=== PATIENT | female | born 1985 | race Caucasian/White ===

== ENCOUNTER 2018-01-18 16:13 | Outpatient (CLI) | payer BC ==
[2018-01-18 17:08] LABS: BHCG - Serum Negative (NEGATIVE); Pregs Control Background? CLEAR/WHITE (CLR/WHITE); Pregs Control Bar Appear? YES (CONTROL BAR)
[2018-01-18 17:45] LABS: ALT (SGPT) 179 U/L (8-55); AST (SGOT) 27 U/L (5-34); Albumin 4.1 g/dL (3.5-5.0); Alkaline Phosphatase 137 U/L (40-150); Bilirubin, Direct 0.2 mg/dL (0.1-0.3); Bilirubin, Total 0.3 mg/dL (0.2-1.2); Protein, Total 7.3 g/dL (6.0-8.3)
== END 2018-01-18 16:14 | disposition home or self-care (01) ==
LOC: LABBT 16:13
PROVIDERS: ATTEND Surgery
DX: Z01.812 Encounter for preprocedural laboratory examination (principal); K80.20 Calculus of gallbladder without cholecystitis without obstruction
CPT/HCPCS: 80076; 84703

== ENCOUNTER 2018-01-26 11:17 | Day surgery (SDC) | payer BC ==
[2018-01-18 16:28] VITALS: BMI 32.4
[2018-01-26] MEDS ORDERED: Midazolam HCl 2 mg/2 ml Vial ONE (12:40)
[2018-01-26] MEDS ORDERED: Bupivacaine/Epinephrine 0.25% 30 ML VIAL ONE (12:41)
[2018-01-26] MEDS ORDERED: Iothalamate Meglumine 60% 50 ML VIAL FS ONE (12:42)
[2018-01-26] MEDS ORDERED: Fentanyl 100 MCG/2 ML VIAL ONE ×5 (12:47→15:57)
[2018-01-26] MEDS ORDERED: cefOXitin 2 GM in Sodium Chloride 0.9% 100 ML IVPB SCH (13:00)
[2018-01-26] MEDS ORDERED: cefOXitin 2 GM VIAL ONE (13:15)
[2018-01-26] MEDS ORDERED: Lidocaine 1% PF 5 ML VIAL ONE (13:34)
[2018-01-26] MEDS ORDERED: Glycopyrrolate 0.2 MG/ML 5 ML SYRINGE ONE (13:34)
[2018-01-26] MEDS ORDERED: ePHEDrine/0.9% NaCl/PF SYRINGE 50 mg/10 ml ONE (13:34)
[2018-01-26] MEDS ORDERED: PROPOFOL 200 MG/20 ML VIAL ONE (13:34)
[2018-01-26] MEDS ORDERED: Ondansetron PF 4 MG/2 ML Vial ONE (14:29)
[2018-01-26] MEDS ORDERED: Ketorolac Tromethamine 30 MG/ML VIAL ONE (14:41)
--- NOTE | 2018-01-26 15:12 | RAD ---
TWO INTRAOPERATIVE RADIOGRAPHS DURING A CHOLANGIOGRAM: FINDINGS: Intraoperative cholangiogram was performed and demonstrates catheterization and injection of the cyst ic duct with contrast seen in the common bile duct and common hepatic ducts. Free flow of contrast i s seen into the duodenum. There is some retrograde contrast also in the distal pancreatic duct. IMPRESSION: No evidence of obstructing calculi seen in the common bile duct. POS: TRISH
[2018-01-26] MEDS ORDERED: HYDROcodone/Acetaminophen 5/325 mg Tablet ONE (18:11)
--- NOTE | 2018-01-26 20:52 | OP ---
DATE OF PROCEDURE: 01/26/2018 PREOPERATIVE DIAGNOSIS: Symptomatic gallstones. POSTOPERATIVE DIAGNOSES: Symptomatic gallstones. PROCEDURE: Laparoscopic cholecystectomy with intraoperative cholangiogram. SURGEON: Dr. Carrasco. ANESTHESIA: General. ESTIMATED BLOOD LOSS: Minimal. COMPLICATIONS: None. SPECIMEN: Gallbladder. FINDINGS: Normal cholangiogram. TECHNIQUE: The patient was taken to the operating room and placed supine on the table. After genera l anesthetic was obtained, the abdomen was prepped and draped in a sterile fashion. Curved incision made below the umbilicus. Cautery was used to dissect down to and score the fascia. Abdominal cavit y entered bluntly using a Ivy clamp. Holding stitch of PDS placed on each side of the fascia. Has caputo trocar was placed. High-flow pneumoperitoneum was obtained. Upper midline 5 mm port and right q uadrant from 5-mm ports were placed under direct camera visualization. The gallbladder was retracted from gallbladder fossa. The peritoneum was opened anteriorly and posteriorly. The critical view tr iangle was seen showing only the cystic duct and cystic artery branching from medial to lateral and n o other branching structures. Clip was placed on the cystic duct. A small ductotomy was made just p roximal to that. Cholangiocatheter was brought in through a separate stab incision and placed in the cystic duct and a cholangiogram was performed which shows good contrast flow into the duodenum witho ut obstruction, good filling of the right and left hepatic duct system. Cholangiocatheter was remove d. Three clips were placed proximal on the cystic duct and it was cut using laparoscopic scissors. Cystic artery was taken using two clips proximally and one distally, and cut using laparoscopic sciss ors. Cautery was used to dissect the gallbladder, gallbladder fossa. Gallbladder was placed in the Endocatch bag and brought through the Singh. The gallbladder fossa, there is no bleeding. All port sites were infiltrated using local anesthetic. All ports were removed under camera visualization. Pneumoperitoneum was let down. PDS was used to close the fascial defect from the inferior abdominal incision. All incisions were irrigated and closed using 4-0 Monocryl and Dermabond. The patient jeremiah t to recovery room in stable condition. All instrument counts, needle counts and lap counts are tenzin ect.
== END 2018-01-26 18:35 | disposition home or self-care (01) ==
LOC: SDC 11:17
PROVIDERS: ATTEND Surgery
PROC: 0FT44ZZ Resection of Gallbladder, Percutaneous Endoscopic Approach (ICD-10-PCS; principal; 2018-01-26)
PROC: BF131ZZ Fluoroscopy of Gallbladder and Bile Ducts using Low Osmolar Contrast (ICD-10-PCS; principal; 2018-01-26)
DX: K80.10 Calculus of gallbladder with chronic cholecystitis without obstruction (principal); F41.9 Anxiety disorder, unspecified; F32.9 Major depressive disorder, single episode, unspecified; Z79.899 Other long term (current) drug therapy
CPT/HCPCS: 47532; 88304; 96374; J0694; J1610; J1885; J2001; J2250; J2405; J2704; J3010; J7050; Q9961

== ENCOUNTER 2020-01-02 16:53 | Day surgery (SDC) | payer BC, OTHER ==
[2020-01-02 17:30] VITALS: BP 130/83; TEMP 98.3; BMI 38.2
[2020-01-02] MEDS ORDERED: hydrALAZINE 20 MG/ML VIAL SLOW IVP PRN (17:39)
[2020-01-02] MEDS ORDERED: NIFEdipine 10 MG CAP ONE (18:27)
[2020-01-02] MEDS ORDERED: Betamet Acet/Betamet Na Ph 30 MG/5 ML VIAL ONE (18:27)
[2020-01-02] MEDS ORDERED: Betamet Acet/Betamet Na Ph 30 MG/5 ML VIAL IM SCH (18:30)
[2020-01-02] MEDS: NIFEdipine 10 MG CAP PO SCH ×2 (18:30→19:30)
[2020-01-02] MEDS ORDERED: Lactated Ringer's 1,000 ML IV SCH ×2 (18:30)
[2020-01-02] MEDS ORDERED: FLU VACC QS2020-21(6MOS UP)/PF 60 MCG/0.5 ML SYRINGE IM ONE (19:00)
[2020-01-02] MEDS ORDERED: NIFEdipine 10 MG CAP PO SCH (19:15)
[2020-01-02] MEDS ORDERED: Butorphanol Tartrate 1 MG/ML VIAL ONE (19:33)
[2020-01-02] MEDS ORDERED: Butorphanol Tartrate 1 MG/ML VIAL SLOW IVP SCH (19:45)
[2020-01-02] MEDS ORDERED: NIFEdipine 10 MG CAP PO PRN (20:00)
[2020-01-02] MEDS ORDERED: Ondansetron PF 4 MG/2 ML Vial ONE (20:48)
[2020-01-02] MEDS ORDERED: Ondansetron PF 4 MG/2 ML Vial IVP SCH (21:00)
[2020-01-02] MEDS ORDERED: Calcium Carbonate 500 MG ChewTAB PO SCH (21:00)
--- NOTE | 2020-01-02 21:24 | PRG ---
DATE OF SERVICE: 01/02/2020 PRESENTING COMPLAINT: Contractions at 34 weeks. HISTORY OF PRESENT ILLNESS: Ms. Palacios is a 34-year-old, 2, para 1, at 34 weeks. She has a history of previous section for labor at 35 weeks with placenta previa. She has no placenta previa with this . Reports contractions today. She denies leakage of fluid. 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 Pap negative. Rubella immune. VDRL nonreactive. Hepatitis B, GC, and Chlamydia negative. MEDICAL HISTORY: Gastroesophageal reflux. SURGICAL HISTORY: C-sections and cholecystectomy. ALLERGIES: NONE. MEDICATIONS: vitamins and H2 nancy. SOCIAL HISTORY: Denies tobacco, alcohol, or IV drug abuse. FAMILY HISTORY: Noncontributory. REVIEW OF SYSTEMS: Noncontributory. PHYSICAL EXAMINATION: GENERAL: White female, in no acute distress. VITAL SIGNS: Blood pressure 118/72, pulse 85, respirations 18, temperature 98.2. HEENT: Within normal limits. LUNGS: Clear to auscultation bilaterally. HEART: Regular rhythm. ABDOMEN: Soft and nontender. She has indelible contractions about every 4 to 5 minutes. No CVA tenderness. PELVIC: Vulva without lesions. Vagina without discharge. Cervix, fingertip, long and high. EXTREMITIES: Without clubbing, cyanosis, or edema. monitoring reveals contractions about every 4 to 5 minutes, category 1 heart rate tracing, positive accelerations, no decelerations. The patient was administered Procardia per protocol and had resolution of her contractions. Because of her previous labor history and her risk for repeat, decision was made to go ahead and give the patient corticosteroids. She was administered betamethasone 12 mg IM at 1900 hours this evening. The patient desires to go home tonight, and a message was sent to [facility]'s [place] to get her in late tomorrow morning or early tomorrow afternoon for slightly accelerated second dose of betamethasone. ER precautions given to the patient. Job ID: [id number]
== END 2020-01-02 21:10 | disposition home health service (06) ==
LOC: L&D/OP 16:53
PROVIDERS: ATTEND Student in an Organized Health Care Education/Training Program
DX: O47.03 False labor before 37 completed weeks of gestation, third trimester (principal); O99.613 Diseases of the digestive system complicating pregnancy, third trimester; K21.9 Gastro-esophageal reflux disease without esophagitis; O09.213 Supervision of pregnancy with history of pre-term labor, third trimester; O34.219 Maternal care for unspecified type scar from previous cesarean delivery; Z3A.34 34 weeks gestation of pregnancy; Z79.899 Other long term (current) drug therapy
CPT/HCPCS: J0595; J0702; J2405

== ENCOUNTER 2020-01-05 16:24 | Day surgery (SDC) | payer BC, OTHER ==
[2020-01-05] MEDS: Lactated Ringer's 1,000 ML IV SCH ×2 (16:55→17:55)
[2020-01-05 17:20] VITALS: BMI 38.2
[2020-01-05] MEDS ORDERED: hydrALAZINE 20 MG/ML VIAL SLOW IVP PRN (17:35)
--- NOTE | 2020-01-05 17:43 | PDOC.LDHP ---
Labor and Delivery H&P Chief complaint: contractions HPI: 33 y/o at 34w3d, patient of Dr. Ramos, presents with ctx and low back pain that radiates to her groin bilaterally. She was seen and Monday for similar complaints and received betamethasone. She has had some urinary frequency but no dysuria. Denies VB, LOF, or decreased FM. ROS neg for HEENT, CV, pulm, GI, , neuro, psych, skin, musculoskeletal, or constitutional symptoms other than mentioned above. OB History Details: 1 prior LTCS at 35 weeks for PTL and placenta previa Current complications: none Past Medical History: None Current medications: pre-nori vitamins Previous surgical history: low tranverse CS, cholecystectomy Allergies/Adverse Reactions: Allergies Allergy/AdvReac Type Severity Reaction Status Date / Time No Known Allergies Allergy Verified 01/02/20 17:25 Social history: none - Physical Exam Vital signs reviewed and normal: yes General: NAD, resting Lungs: nonlabored breathing Abdomen: gravid (no CVA tenderness) Extremeties: no edema FHT: category 1 (155, mod variability, + accels, no decels) [place] contractions every: 2-3 mins - Vaginal Exam cm dilated: 0 Effacement: 0% Station: -3 - OB Labs Blood type: A RH: negative - Assessment 34 y/o at 34w3d with no e/o active labor. UA with e/o UTI with 3+ bacteria, +LE. No CVA tenderness, afebrile. status reassuring with reactive NST. - Plan -: Given Rx for Keflex. D/c home with precautions. Advised to keep all appointments.
[2020-01-05] MEDS ORDERED: Butorphanol Tartrate 1 MG/ML VIAL SLOW IVP PRN (17:53)
[2020-01-05 18:19] LABS: Bacteria/HPF 3+ HPF (None Seen); Bilirubin Negative (Negative); Blood, Urine Negative (Negative); Clarity Clear (Clear); Glucose, Urine (Dipstick) Normal (Negative); Ketone, Urine Negative (Negative); Leukocyte 75 Leu/uL (Negative); Nitrite Negative (Negative); Protein, Urine (Dipstick) Negative (Neg-Trace); RBC/HPF 0-3 HPF (0-3); Squamous Epithelial 0-3 HPF (0-3); Urobilinogen Normal mg/dL (Less than 2)
[2020-01-05 18:20] LABS: Urine Culture Reflex Yes Yes
[2020-01-06] MEDS ORDERED: FLU VACC QS2020-21(6MOS UP)/PF 60 MCG/0.5 ML SYRINGE IM ONE (17:30)
== END 2020-01-05 18:48 | disposition home or self-care (01) ==
LOC: L&D/OP 16:24
PROVIDERS: ATTEND Student in an Organized Health Care Education/Training Program
DX: O47.03 False labor before 37 completed weeks of gestation, third trimester (principal); O99.891 Other specified diseases and conditions complicating pregnancy; M54.5 Low back pain; O23.43 Unspecified infection of urinary tract in pregnancy, third trimester; B95.4 Other streptococcus as the cause of diseases classified elsewhere; O34.211 Maternal care for low transverse scar from previous cesarean delivery; O09.213 Supervision of pregnancy with history of pre-term labor, third trimester; Z3A.34 34 weeks gestation of pregnancy
CPT/HCPCS: 81001; 87077; 87086; 96360; 96361; 96375; 99283; J0595

== ENCOUNTER 2020-01-21 15:13 | Day surgery (SDC) | payer BC ==
[2020-01-21] MEDS ORDERED: hydrALAZINE 20 MG/ML VIAL SLOW IVP PRN (15:47)
[2020-01-21 16:03] VITALS: BMI 38.2
[2020-01-21] MEDS ORDERED: Butorphanol Tartrate 1 MG/ML VIAL SLOW IVP PRN (16:07)
[2020-01-21 16:12] LABS: #Basophils 0.1 thou/uL (0.0-0.2); #Eosinphils 0.1 thou/uL (0.0-0.7); #Lymphocytes 1.7 thou/uL (1.20-3.40); #Monocytes 0.5 thou/uL (0.11-0.59); %Basophils 0.5 % (0.0-1.0); %Eosinophils 0.6 % (0.0-10.0); %Lymphocytes 18.4 % (21.0-51.0); %Monocytes 5.4 % (0.0-10.0); %Neutrophils 75.1 % (42.0-75.0); Hemoglobin 11.2 g/dL (12.0-16.0); Mean Corpuscular HGB CONC 35.3 g/dL (32.0-36.0); Mean Corpuscular Hemoglobin 32.7 pg (27.0-31.0); Mean Corpuscular Volume 92.8 fL (78.0-98.0); Mean Platelet Volume 6.6 fL (7.4-10.4); Platelet Count 258 thou/uL (130-400); RBC Distribution Width 12.1 % (11.5-14.5); Red Blood Cell (RBC) Count 3.42 mill/uL (4.20-5.40); White Blood Cell (WBC) Count 9.4 thou/uL (4.8-10.8)
--- NOTE | 2020-01-21 16:12 | PDOC.LDHP ---
Labor and Delivery H&P Chief complaint: contractions HPI: 34 y/o at 36w5d, patient of Dr. Ramos, presents with ctx q 2-5 minutes since 11:30 this morning. Took 2 procardia this morning with little relief. Denies VB, LOF, or decreased FM. ROS neg for HEENT, cv, pulm, gi, gu, neuro, psych, skin, musculoskeletal or constitutional symptoms other than mentioned above. Current complications: none Past Medical History: Depression, anxiety Current medications: pre-nori vitamins Previous surgical history: low tranverse CS, cholecystectomy Allergies/Adverse Reactions: Allergies Allergy/AdvReac Type Severity Reaction Status Date / Time No Known Allergies Allergy Verified 01/02/20 17:25 Social history: none - Physical Exam Vital signs reviewed and normal: yes General: NAD, resting Lungs: nonlabored breathing Abdomen: gravid Extremeties: no edema FHT: category 1 [place] contractions every: 2-4 mins - Vaginal Exam cm dilated: 0 (unchanged on recheck) Effacement: 0% Station: -3 - OB Labs Blood type: A RH: negative Antibody Screen: negative HIV: negative RPR: negative HEPSAg: negative 1 hour GCT: positive 3 hour GTT: neg Urine drug screen: negative Rubella: immune - Assessment 34 y/o at 36w5d with no e/o active labor or acute process. status reassuring with reactive NST. Ctx spaced out after fluids. BP workup wnl, repeat BPs wnl. - Plan -: D/c home with precautions. Advised to stop taking procardia and keep appointments.
[2020-01-21 16:31] LABS: ALT (SGPT) 21 U/L (8-55); AST (SGOT) 19 U/L (5-34); Albumin 3.2 g/dL (3.5-5.0); Alkaline Phosphatase 136 U/L (40-110); Anion Gap 15 mmol/L (10-20); BUN (Urea Nitrogen) 5 mg/dL (7.0-18.7); Bilirubin, Total 0.5 mg/dL (0.2-1.2); Calc. Creatinine Clearance 261 mL/min (70-130); Calcium 8.6 mg/dL (7.8-10.44); Carbon Dioxide 20 mmol/L (22-29); Chloride 105 mmol/L (98-107); Estimated GFR-MDRD Greater than 90; Globulin 3.4 g/dL (2.4-3.5); Glucose 77 mg/dL (70-105); Potassium 3.5 mmol/L (3.5-5.1); Protein, Total 6.6 g/dL (6.0-8.3); Sodium 136 mmol/L (136-145)
[2020-01-21 16:57] LABS: Protein, Urine Random Quant Less than 10 mg/dL (1-14)
[2020-01-22] MEDS ORDERED: FLU VACC QS2020-21(6MOS UP)/PF 60 MCG/0.5 ML SYRINGE IM ONE (09:00)
== END 2020-01-21 18:15 | disposition home or self-care (01) ==
LOC: L&D/OP 15:13
PROVIDERS: ATTEND Student in an Organized Health Care Education/Training Program
DX: O47.03 False labor before 37 completed weeks of gestation, third trimester (principal); O99.343 Other mental disorders complicating pregnancy, third trimester; F32.9 Major depressive disorder, single episode, unspecified; F41.9 Anxiety disorder, unspecified; O34.211 Maternal care for low transverse scar from previous cesarean delivery; Z3A.36 36 weeks gestation of pregnancy
CPT/HCPCS: 36415; 80053; 82570; 84156; 85025; 96360; 96361; 96375; 99283; J0595

== ENCOUNTER 2020-01-23 09:20 | Inpatient (IN) | payer BC ==
[2020-01-23 09:57] VITALS: BMI 39.1
[2020-01-23] MEDS ORDERED: hydrALAZINE 20 MG/ML VIAL SLOW IVP PRN ×2 (10:42→20:08)
[2020-01-23] MEDS ORDERED: Ondansetron PF 4 MG/2 ML Vial IVP PRN ×3 (10:42→20:08)
[2020-01-23] MEDS ORDERED: Promethazine HCl 25 MG/ML VIAL IM PRN ×2 (10:42→17:06)
[2020-01-23] MEDS ORDERED: Bicitra 30 ML UDCUP PO SCH (10:45)
[2020-01-23] MEDS ORDERED: Lactated Ringer's 1,000 ML IV SCH (10:45)
[2020-01-23] MEDS ORDERED: CEFAZOLIN 2 GM in Premix Bag 1 BAG IVPB SCH (11:00)
[2020-01-23 11:12] LABS: Hemoglobin 10.9 g/dL (12.0-16.0); Mean Corpuscular HGB CONC 33.7 g/dL (32.0-36.0); Mean Corpuscular Hemoglobin 31.6 pg (27.0-31.0); Mean Corpuscular Volume 93.9 fL (78.0-98.0); Mean Platelet Volume 6.7 fL (7.4-10.4); Platelet Count 273 thou/uL (130-400); RBC Distribution Width 12.1 % (11.5-14.5); Red Blood Cell (RBC) Count 3.44 mill/uL (4.20-5.40); White Blood Cell (WBC) Count 7.6 thou/uL (4.8-10.8)
[2020-01-23 11:21] LABS: ALT (SGPT) 15 U/L (8-55); AST (SGOT) 15 U/L (5-34); Albumin 3.2 g/dL (3.5-5.0); Alkaline Phosphatase 132 U/L (40-110); Anion Gap 11 mmol/L (10-20); BUN (Urea Nitrogen) 5 mg/dL (7.0-18.7); Bilirubin, Total 0.2 mg/dL (0.2-1.2); Calc. Creatinine Clearance 266 mL/min (70-130); Calcium 8.2 mg/dL (7.8-10.44); Carbon Dioxide 22 mmol/L (22-29); Chloride 107 mmol/L (98-107); Estimated GFR-MDRD Greater than 90; Globulin 2.9 g/dL (2.4-3.5); Glucose 79 mg/dL (70-105); Protein, Total 6.1 g/dL (6.0-8.3); Sodium 136 mmol/L (136-145)
[2020-01-23 11:38] LABS: Syphilis Antibody Nonreactive (Nonreactive); Syphilis Antibody Index 0.03 S/CO (<1.00 Non-Reactive)
[2020-01-23 11:39] LABS: Hep B Surf Ag Non-Reactive S/CO (NonReactive)
[2020-01-23] MEDS ORDERED: Acetaminophen 500 MG TAB PO SCH (12:30)
--- NOTE | 2020-01-23 14:28 | PDOC.LDHP ---
Labor and Delivery H&P Chief complaint: other (elevated blood pressure) HPI: 34yo at 37w0d by LMP sent over from clinic for BP 150/100s x 3 readings. Hx of PIH in last Current gestational age (weeks): 37 Due date: 02/13/20 Dating criteria: last menstrual period Grav: 2 Para: 1 Current complications: preeclampsia without severe features Abnormal US findings: No Past Medical History: anxiety depression Current medications: pre-nori vitamins, other (buspirone) Previous surgical history: low tranverse CS Allergies/Adverse Reactions: Allergies Allergy/AdvReac Type Severity Reaction Status Date / Time No Known Allergies Allergy Verified 01/02/20 17:25 Social history: none - Physical Exam Vital signs reviewed and normal: yes General: NAD Heart: RRR Lungs: CTAB Abdomen: gravid Extremeties: no edema FHT: category 1 - OB Labs Blood type: A RH: negative Antibody Screen: positive HIV: negative RPR: negative HEPSAg: negative 1 hour GCT: negative GBS: negative Urine drug screen: negative Rubella: immune - Assessment L&D Assessment: scheduled repeat section PIH at term - Plan Plan: admit to L&D, to OR for section, informed consent obtained, anesthesia consult for pain management -: No e/o severe features, labs wnl, BP nl-mild. Mag for severe features.
[2020-01-23] MEDS ORDERED: Morphine PF 10 MG/10 ML VIAL ONE (15:51)
[2020-01-23] MEDS ORDERED: Oxytocin 10 UNITS/ML VIAL ONE (15:52)
[2020-01-23] MEDS ORDERED: Ondansetron PF 4 MG/2 ML Vial ONE (15:52)
[2020-01-23] MEDS ORDERED: ePHEDrine 50 MG/ML VIAL ONE (15:52)
[2020-01-23] MEDS ORDERED: Dexamethasone 4 mg/ml Vial ONE (15:52)
[2020-01-23] MEDS ORDERED: PHENYLEPHRINE-NS 100 MCG/ML 10 ML SYRINGE ONE (15:52)
--- NOTE | 2020-01-23 15:54 | PDOC.OPDEL ---
OB Operative/Delivery Note Delivery Dr/Surgeon: Richard Assist: Darnell, PGY2 Pre-Delivery Diagnosis: other (GHTN at 37w, prior CS x 1, declines TOLAC, desires sterilization) Procedure/Post Delivery Dx: repeat low transverse CS (and bilateral salpingectomy) Weeks gestation: 37 Anesthesia: spinal - Findings A Sex: male Weight: 7 lb 14 oz - 1 min: 8 - 5 min: 9 - Additional Findings/Plan Placenta delivered: spontaneous findings: low transverse hysterotomy without extension, normal uterus, normal tubes, normal ovaries Post delivery plan: routine recovery
[2020-01-23] MEDS ORDERED: Lidocaine 2% 10 ML INJ ONE (16:15)
[2020-01-23] MEDS ORDERED: Lidocaine 1% PF 5 ML VIAL ONE (16:25)
[2020-01-23] MEDS ORDERED: Fentanyl 100 MCG/2 ML VIAL ONE (16:42)
[2020-01-23] MEDS ORDERED: Midazolam HCl 2 mg/2 ml Vial ONE (16:42)
[2020-01-23] MEDS ORDERED: diphenhydrAMINE 50 MG/ML VIAL IVP PRN (17:06)
[2020-01-23] MEDS ORDERED: HYDROmorphone 2 MG/ML VIAL SLOW IVP PRN (17:06)
[2020-01-23] MEDS ORDERED: Promethazine HCl 25 MG SUPP PR PRN (17:06)
[2020-01-23] MEDS ORDERED: Ondansetron HCl/PF 4 MG/2 ML Vial IVP PRN (17:06)
[2020-01-23] MEDS ORDERED: L&D-Morphine 4 MG/ML VIAL SLOW IVP PRN (17:06)
[2020-01-23] MEDS ORDERED: Naloxone HCl 0.4 mg/ml Vial IVP PRN ×2 (17:06)
[2020-01-23] MEDS ORDERED: Meperidine HCl/PF 25 MG/ML VIAL SLOW IVP PRN (17:06)
[2020-01-23] MEDS ORDERED: Naloxone HCl 0.4 mg/ml Vial IV PRN (17:06)
[2020-01-23] MEDS ORDERED: Ketorolac Tromethamine 30 MG/ML VIAL IVP SCH (17:15)
[2020-01-23] MEDS ORDERED: Communication Order-Pharmacy FS PRN (17:15)
[2020-01-23 18:53] LABS: SARS-CoV-2 NAA Rapid Test Not Detected (NotDetected)
[2020-01-23] MEDS ORDERED: Meperidine HCl/PF 25 MG/ML VIAL ONE (19:13)
[2020-01-23] MEDS ORDERED: Ketorolac Tromethamine 30 MG/ML VIAL ONE (19:48)
[2020-01-23] MEDS: Ketorolac Tromethamine 30 MG/ML VIAL IVP PRN (19:50)
[2020-01-23] MEDS ORDERED: Acetaminophen 325 MG TAB PO PRN (20:08)
[2020-01-23] MEDS ORDERED: Bisacodyl 10 MG SUPP PR PRN (20:08)
[2020-01-23] MEDS ORDERED: Lanolin Ointment 7 GM TUBE TOP PRN (20:08)
[2020-01-23] MEDS ORDERED: diphenhydrAMINE 25 MG CAP PO PRN (20:08)
[2020-01-24] MEDS: Ketorolac Tromethamine 30 MG/ML VIAL IVP PRN (01:59)
[2020-01-24] MEDS: Docusate Calcium (SURFAK) 240 MG CAP PO SCH ×3 (02:19→21:11)
[2020-01-24] MEDS ORDERED: Zolpidem Tartrate 5 MG TAB PO PRN (05:15)
[2020-01-24] MEDS ORDERED: HYDROcodone/Acetaminophen 5/325 mg Tablet PO PRN (05:15)
[2020-01-24 06:24] LABS: Hemoglobin 10.3 g/dL (12.0-16.0); Mean Corpuscular HGB CONC 35.1 g/dL (32.0-36.0); Mean Corpuscular Hemoglobin 32.6 pg (27.0-31.0); Mean Corpuscular Volume 93.1 fL (78.0-98.0); Mean Platelet Volume 6.4 fL (7.4-10.4); Platelet Count 259 thou/uL (130-400); Red Blood Cell (RBC) Count 3.16 mill/uL (4.20-5.40); White Blood Cell (WBC) Count 12.2 thou/uL (4.8-10.8)
[2020-01-24] MEDS: Prenatal Vitamin 1 TAB PO SCH (08:36)
[2020-01-24] MEDS: HYDROcodone/Acetaminophen 5/325 mg Tablet PO PRN ×3 (08:52→23:19)
[2020-01-24] MEDS ORDERED: Adacel (T-DAP) 0.5 ML SYRINGE IM ONE (09:00)
[2020-01-24] MEDS ORDERED: FLU VACC QS2020-21(6MOS UP)/PF 60 MCG/0.5 ML SYRINGE IM ONE (09:00)
[2020-01-24] MEDS: Ibuprofen 800 MG TAB PO SCH ×2 (13:51→21:11)
[2020-01-24] MEDS: Simethicone Chewable 80 MG TAB PO PRN ×2 (21:11→23:19)
[2020-01-25] MEDS: HYDROcodone/Acetaminophen 5/325 mg Tablet PO PRN ×3 (03:16→11:37)
[2020-01-25] MEDS: Simethicone Chewable 80 MG TAB PO PRN (03:16)
[2020-01-25] MEDS: Ibuprofen 800 MG TAB PO SCH (05:19)
[2020-01-25] MEDS: Prenatal Vitamin 1 TAB PO SCH (08:18)
[2020-01-25] MEDS: Docusate Calcium (SURFAK) 240 MG CAP PO SCH (08:18)
--- NOTE | 2020-01-25 08:35 | PDOC.PP ---
Post Progress Note Post Day #: 2 Subjective: Pt is PP day #2, pain controlled with medication tolerating diet well, passing gas. urinating well. bonding well with infant. Ready to go home today light lochia. PO intake tolerated: yes Flatus: yes Ambulation: yes Vital Signs (12 hours) Temp Pulse Resp BP 01/25/20 03:15 98.2 F 66 16 100/54 L 01/24/20 23:20 98.2 F 73 16 120/61 Weight Weight 106.594 kg - Physical Examination General: NAD Cardiovascular: no m/r/g, RRR Respiratory: clear to auscultation bilaterally, non-labored breathing Abdominal: + bowel sounds, lochia, no distention, appropriately TTP Fundus firm & at: umbilicus Extremities: negative homans (B) Skin: CS incision dry & intact, no rash Neurological: no gross focal deficits Psychiatric: A&Ox3, normal affect Result Diagrams: 01/24/20 06:12 01/23/20 10:53 Additional Labs: Post Labs Hep Bs Antigen Non-Reactive S/CO (NonReactive) 01/23/20 10:53 Blood Type A NEGATIVE 01/23/20 10:53 - Assessment/Plan 34 y/o -> PostOp day [facility]2 from [facility] @ 37.0 weeks for Pre-E without severe features. 1. PP day #2[facility] Dr. Ramos sent rx to pharmacy for pain control outpt. F/u with Dr. Ramos on Mar 12 in office to get circ today before d/c. 2. Pre-E without severe features BP's wnl in PP period. No s/s's of Pre-E. continue to monitor BP's outpt. Dispo: plan d/c home today, f/u with PCP in [address] Plan discussed with Dr[address] Clark, attending physician, who is in agreement with above stated plan. Addendum - Attending - Attending Attestation Date/Time: 01/27/20813 I personally evaluated the patient and discussed the management with Dr. Patrick. I agree with the History, Examination, Assessment and Plan documented above.
--- NOTE | 2020-01-25 09:46 | PDOC.PP ---
Post Progress Note Post Day #: 1 PO intake tolerated: yes Flatus: yes Ambulation: yes Vital Signs (12 hours) Temp Pulse Resp BP Pulse Ox 01/25/20 08:00 98.3 F 80 12 119/61 97 01/25/20 03:15 98.2 F 66 16 100/54 L 01/24/20 23:20 98.2 F 73 16 120/61 Weight Weight 235 lb - Physical Examination General: NAD Respiratory: non-labored breathing Psychiatric: A&Ox3, normal affect Result Diagrams: 01/24/20 06:12 01/23/20 10:53 Additional Labs: Post Labs Hep Bs Antigen Non-Reactive S/CO (NonReactive) 01/23/20 10:53 Blood Type A NEGATIVE 01/23/20 10:53 - Assessment/Plan POD1 s/p RCS and RRS VSSAF No sx PIH, BP wnl Routine postop care, met appropriate milestones Rh neg Baby Rh neg, RImm Cont postop care, poss home tomorrow
[2020-01-25 11:52] VITALS: BP 112/62; TEMP 98
--- NOTE | 2020-01-28 08:31 | OP ---
DATE OF PROCEDURE: 01/23/2020 PREOPERATIVE DIAGNOSES: 1. Intrauterine at 37 weeks zero days. 2. Gestational hypertension. 3. Prior section x1, declines trial of labor. 4. Desires sterilization. POSTOPERATIVE DIAGNOSES: 1. Intrauterine at 37 weeks zero days. 2. Gestational hypertension. 3. Prior section x1, declines trial of labor. 4. Desires sterilization. PROCEDURES PERFORMED: Repeat low-transverse section via Pfannenstiel skin incision and bilateral salpingectomy. ANESTHESIA: Spinal. ESTIMATED BLOOD LOSS: 525 mL. 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 COMPLICATIONS: None. DRAINS: Parsons catheter. PATHOLOGY: Bilateral fallopian tube segments. FINDINGS: Male infant, cephalic presentation, weighing 7 pounds 14 ounces, Apgars of 8 and 9. Clear amniotic fluid. Hysterotomy without extension. Normal uterus, ovaries, and tubes bilaterally. DESCRIPTION OF PROCEDURE: The patient was taken to the operating room, where spinal anesthesia was obtained without difficulty. The patient was prepped and draped in a sterile fashion in a dorsal supine position with a leftward tilt. After ensuring adequacy of anesthesia, a Pfannenstiel skin incision was made and carried down to the underlying subcutaneous tissue with a knife. The fascia was nicked in the midline with a knife and carried laterally with the King scissors. The superior aspect of the fascia was tented with 2 Kochers and dissected off the rectus sharply with the King's. The inferior aspect of the fascia was tented with 2 Kochers and dissected off the rectus sharply as well down to the pubic symphysis. The rectus was bluntly divided in the midline and the peritoneum was grasped with the hemostat and sharply entered into with Metzenbaum. The Mike O retractor was placed and some filmy adhesions of the lower uterine segment were incised with the Metzenbaum and the bladder was taken down. The lower uterine segment was incised in a transverse fashion and extended with a Mejía maneuver. The infant's head was brought to the hysterotomy and delivered with fundal pressure followed by the body. The 's cord was clamped and infant handed to awaiting Mike team. Cord blood was obtained. The placenta was allowed to spontaneously deliver. The uterus was exteriorized, cleared of all clots and debris, and hysterotomy was repaired with #1 Monocryl in a running locking fashion. Hemostasis was noted. A moist warm lap sponge was placed over the hysterotomy and the left fallopian tube was grasped and elevated with a Silvia clamp. Windows were made with the Bovie in between the vessels to the fallopian tube. The vessels were then clamped off as well as the medial portion of the fallopian tube with hemostat and the fallopian tube was incised with the Metzenbaum and sent for final pathology. The pedicles were then ligated with 2-0 chromic and hemostasis was noted. The same procedure was carried out on the right side and hemostasis was noted as well. The hysterotomy was then examined and noted to be hemostatic. The uterus was placed back into the abdomen. The pelvis was irrigated copiously and suctioned. The hysterotomy was again noted to be hemostatic. Both fallopian tube sites were examined and noted to have excellent hemostasis. The Mike O retractor was removed. The rectus muscles were examined and cauterized of any bleeders and the fascia was reapproximated with 0 PDS x2 sutures with excellent reapproximation. The subcutaneous tissue was irrigated and cauterized of any bleeders and reapproximated with a 2-0 plain gut in a running fashion. The skin was closed with 4-0 Monocryl in a subcuticular fashion. Dermabond was applied as well as a pressure dressing. The patient tolerated the procedure well. Sponge, lap, and needle counts were correct x2. The patient was taken to recovery room in stable condition. The patient received Ancef 2 g prior to the procedure. Job ID: [id number]
== END 2020-01-25 12:10 | disposition home or self-care (01) | DRG 785 ==
LOC: L&D/OP 09:20 → L&D-LIB 09:45 → 3SW 20:16
PROVIDERS: ADMIT Student in an Organized Health Care Education/Training Program; ATTEND Student in an Organized Health Care Education/Training Program
PROC: 10D00Z1 Extraction of Products of Conception, Low, Open Approach (ICD-10-PCS; principal; 2020-01-23)
PROC: 0UB70ZZ Excision of Bilateral Fallopian Tubes, Open Approach (ICD-10-PCS; 2020-01-23)
DX: O13.4 Gestational [pregnancy-induced] hypertension without significant proteinuria, complicating childbirth (principal); Z3A.37 37 weeks gestation of pregnancy; Z37.0 Single live birth; Z20.828 Contact with and (suspected) exposure to other viral communicable diseases; O34.211 Maternal care for low transverse scar from previous cesarean delivery; Z30.2 Encounter for sterilization; F32.9 Major depressive disorder, single episode, unspecified; F41.9 Anxiety disorder, unspecified
CPT/HCPCS: 36415; 51702; 80053; 82570; 84156; 85025; 85027; 86780; 86850; 86870; 86900; 86901; 87340; 88302; 96360; 96361; 96375; 99283; J0595; J0690; J1100; J1885; J2175; J2250; J2270; J2405; J3010; J3490; U0002

== ENCOUNTER 2022-11-22 22:06 | Observation (INO) | payer BC ==
[~2022-11-22 22:06] MED LIST: Bupivacaine 0.25% HCL 30 ML VIAL ONE; EPINEPHrine 1 MG/ML AMP ONE; HYDROmorphone 0.5 MG/0.5 ML SYRINGE ONE; Midazolam HCl 2 mg/2 ml Vial ONE; fentaNYL PF 100 MCG/2 ML SYRINGE ONE
[2022-11-22] MEDS ORDERED: Glucagon 1 MG/ML KIT IM PRN (22:22)
[2022-11-22] MEDS ORDERED: Promethazine HCl 25 MG/ML VIAL IM PRN ×2 (22:22→23:00)
[2022-11-22] MEDS ORDERED: Ipratropium/Albuterol 3 ML NEB NEB PRN (22:22)
[2022-11-22] MEDS ORDERED: Dextrose 5% in Water 1,000 ML IV PRN (22:22)
[2022-11-22] MEDS ORDERED: hydrALAZINE 20 MG/ML VIAL SLOW IVP PRN (22:22)
[2022-11-22] MEDS ORDERED: Dextrose 50% Abboject 50 ML SYRINGE SLOW IVP PRN (22:22)
[2022-11-22] MEDS ORDERED: Ibuprofen 200 MG TAB PO PRN (22:25)
[2022-11-22] MEDS ORDERED: Dexamethasone 20 MG/5 ML VIAL ONE (22:29)
[2022-11-22] MEDS ORDERED: PROPOFOL 200 MG/20 ML VIAL ONE (22:29)
[2022-11-22] MEDS ORDERED: Succinylcholine 200 MG/10 ml SYRINGE FS ONE (22:29)
[2022-11-22] MEDS ORDERED: Lidocaine 1% PF 5 ML VIAL ONE (22:29)
[2022-11-22] MEDS ORDERED: Ondansetron PF 4 MG/2 ML Vial ONE (22:29)
[2022-11-22] MEDS ORDERED: Rocuronium Bromide 10 MG/ML (10ML VIAL) ONE (22:29)
[2022-11-22] MEDS ORDERED: SUGAMMADEX SODIUM 200 MG/2 ML VIAL ONE (22:56)
[2022-11-22] MEDS ORDERED: Ketorolac Tromethamine 30 MG/ML VIAL IVP PRN (23:00)
[2022-11-22] MEDS ORDERED: Ondansetron HCl/PF 4 MG/2 ML Vial IVP PRN (23:00)
[2022-11-22] MEDS ORDERED: HYDROmorphone 2 MG/ML VIAL SLOW IVP PRN (23:00)
[2022-11-22] MEDS ORDERED: Meperidine HCl/PF 25 MG/ML VIAL SLOW IVP PRN (23:00)
[2022-11-22] MEDS ORDERED: Ketorolac Tromethamine 30 MG/ML VIAL ONE (23:37)
[2022-11-22] MEDS ORDERED: fentaNYL 50 mcg/mL 1 mL Vial ONE (23:37)
[2022-11-22] MEDS ORDERED: Piperacillin/Tazobactam 3.375 GM VIAL ONE (23:55)
[2022-11-22] MEDS ORDERED: Sodium Chloride 0.9% 100 ML ONE (23:55)
[2022-11-23] MEDS: Piperacillin/Tazobactam 3.375 GM in Sodium Chloride 0.9% 100 ML IVPB SCH ×2 (01:02→05:26)
[2022-11-23 01:08] VITALS: BMI 26.9
[2022-11-23] MEDS: Acetaminophen 325 MG TAB PO SCH ×3 (01:13→10:11)
[2022-11-23] MEDS: traMADol HCl 50 MG TAB PO PRN ×2 (01:14→06:49)
[2022-11-23] MEDS: Ondansetron PF 4 MG/2 ML Vial IVP PRN ×2 (01:15→06:50)
[2022-11-23] MEDS: Lactated Ringer's 1,000 ML IV SCH ×2 (01:19→07:00)
[2022-11-23] MEDS ORDERED: Famotidine 20 MG TAB PO SCH (09:00)
[2022-11-23] MEDS ORDERED: Famotidine/PF 20 mg/2ml Vial SLOW IVP SCH (09:00)
[2022-11-23] MEDS ORDERED: traMADol HCl 50 MG TAB PO PRN (10:00)
[2022-11-23] MEDS ORDERED: traMADol HCl 50 MG TAB PO SCH (10:01)
[2022-11-23] MEDS ORDERED: Acetaminophen/Codeine 30-300mg Tablet PO PRN (13:26)
[2022-11-23] MEDS ORDERED: Senokot S 8.6-50 MG TAB PO SCH ×2 (13:45→21:00)
[2022-11-23] MEDS ORDERED: ALPRAZolam 0.25 MG TAB PO PRN (14:46)
[2022-11-23 16:54] VITALS: BP 120/80; TEMP 97.7
[2022-11-23] MEDS ORDERED: Acetaminophen 325 MG TAB PO SCH (18:00)
[2022-11-24] MEDS ORDERED: DULoxetine 30 MG CAP PO SCH (09:00)
== END 2022-11-23 17:00 | disposition home or self-care (01) ==
LOC: EDSTATUS 22:06 → SDC 22:06 → T4-A 22:27
PROVIDERS: ADMIT Surgery; ATTEND Surgery
PROC: 0DTJ4ZZ Resection of Appendix, Percutaneous Endoscopic Approach (ICD-10-PCS; principal; 2022-11-23)
DX: K35.30 Acute appendicitis with localized peritonitis, without perforation or gangrene (principal); K66.0 Peritoneal adhesions (postprocedural) (postinfection); F32.A Depression, unspecified; F41.9 Anxiety disorder, unspecified; Z98.890 Other specified postprocedural states; Z87.59 Personal history of other complications of pregnancy, childbirth and the puerperium; Z90.49 Acquired absence of other specified parts of digestive tract; F17.290 Nicotine dependence, other tobacco product, uncomplicated; Z79.899 Other long term (current) drug therapy
CPT/HCPCS: 88304; A4314; J0171; J1100; J1170; J1885; J2250; J2405; J2543; J2704; J3010; J3490; J7120; S0020

== ENCOUNTER 2025-02-24 14:48 | Outpatient (CLI) | payer BC | END 2025-02-24 14:49 | disposition home or self-care (01) | LOC: SCSMRI 14:48 | PROVIDERS: ATTEND Otolaryngology | DX: H90.12 Conductive hearing loss, unilateral, left ear, with unrestricted hearing on the contralateral side (principal) | CPT/HCPCS: 70553; 76376 ==